=== PATIENT | male | born 1995 | race African-American/Black ===

== ENCOUNTER 2018-01-08 08:22 | Emergency (ER) | payer MEDICAID, OTHER ==
[~2018-01-08] VITALS: Ht 175.3 cm; Wt 100.0 kg
[2018-01-08] MEDS ORDERED: ALBUTEROL (0.083%) 2.5MG/3ML NEB HHN STA ×2 (08:46→10:30)
[2018-01-08] MEDS ORDERED: IPRATROPIUM BROMIDE (0.02%) 0.5MG/2.5ML NEB HHN STA (08:46)
[2018-01-08] MEDS ORDERED: PREDNISONE 20MG TABLET PO ONE (09:00)
[2018-01-08] MEDS ORDERED: ALBUTEROL (0.5%) 2.5MG/0.5ML NEB HHN ONE (11:02)
[2018-01-08 12:45] VITALS: BP 139/77
== END 2018-01-08 12:30 | disposition home or self-care (01) ==
LOC: ER 08:22
DX: J45.901 Unspecified asthma with (acute) exacerbation (principal)
CPT/HCPCS: 71045; 94640; 99284; J7512; J7611

== ENCOUNTER 2018-01-17 15:14 | Emergency (ER) | payer MEDICAID, OTHER ==
[~2018-01-17] VITALS: Ht 180.3 cm; Wt 89.0 kg
[2018-01-17] MEDS ORDERED: METHYLPREDNISOLONE SOD SUCC 125 MG/2 ML VIAL IV STA (15:29)
[2018-01-17] MEDS ORDERED: MAGNESIUM 2 G PREMIX 50 ML IV ONE (15:30)
[2018-01-17] MEDS ORDERED: LEVOFLOXACIN 750MG PREMIX 150 ML IV ONE (15:30)
[2018-01-17] MEDS ORDERED: IPRATROPIUM/ALBUTEROL 0.5-3(2.5)MG/3ML NEB HHN ONE (15:30)
[2018-01-17 16:05] LABS: BASOPHILS % 0.7 % (0.0-2.0); EOSINOPHILS % 3.9 % (0.0-5.0); LYMPHOCYTES % 17.6 % (20.0-50.0); MEAN CORPUSCULAR HEMOGLOBIN 25.9 pg (28.0-32.0); MEAN CORPUSCULAR VOLUME 77.8 fL (80.0-94.0); MEAN PLATELET VOLUME 7.6 fl (7.4-10.4); MONOCYTES % 8.4 % (2.0-8.0); NEUTROPHILS % 69.4 % (40.0-76.0); PLATELET 328 x1000/uL (130-400); RED CELL DISTRIBUTION WIDTH 13.8 % (11.6-14.6)
[2018-01-17 16:12] LABS: CHLORIDE 107 mEq/L (98-107)
[2018-01-17 16:16] LABS: ETHANOL BLOOD < 10 mg/dL
[2018-01-17] MEDS ORDERED: LEVOFLOXACIN 500MG TABLET PO ONE (18:15)
[2018-01-17 18:21] VITALS: BP 129/76
== END 2018-01-17 19:05 | disposition home or self-care (01) ==
LOC: ER 15:40
DX: J45.909 Unspecified asthma, uncomplicated (principal)
CPT/HCPCS: 36415; 71045; 80053; 83880; 84484; 85025; 87040; 94640; 96365; 96375; 99285; G0482; J1956; J2930; J3475; J7620

== ENCOUNTER 2018-04-05 21:14 | Emergency (ER) | payer MEDICAID, OTHER ==
[~2018-04-05] VITALS: Ht 180.3 cm; Wt 95.0 kg
[2018-04-05] MEDS ORDERED: METHYLPREDNISOLONE SOD SUCC 125 MG/2 ML VIAL IV STA (22:02)
[2018-04-05] MEDS ORDERED: IPRATROPIUM BROMIDE (0.02%) 0.5MG/2.5ML NEB HHN STA (22:02)
[2018-04-05] MEDS ORDERED: ALBUTEROL (0.083%) 2.5MG/3ML NEB HHN STA (22:02)
[2018-04-05] MEDS ORDERED: MAGNESIUM 2 G PREMIX 50 ML IV ONE (23:00)
[2018-04-06] MEDS ORDERED: IPRATROPIUM BROMIDE (0.02%) 0.5MG/2.5ML NEB HHN STA (01:52)
[2018-04-06] MEDS ORDERED: ALBUTEROL (0.083%) 2.5MG/3ML NEB HHN STA (01:52)
[2018-04-06 02:45] VITALS: BP 113/74
== END 2018-04-06 02:45 | disposition home or self-care (01) ==
LOC: ER 21:14
DX: J45.901 Unspecified asthma with (acute) exacerbation (principal)
CPT/HCPCS: 71045; 94640; 96365; 96375; 99284; J2930; J7611

== ENCOUNTER 2019-05-24 07:15 | Emergency (ER) | payer MEDICAID, OTHER ==
[~2019-05-24] VITALS: Ht 175.3 cm; Wt 81.0 kg
[2019-05-24] MEDS ORDERED: METHYLPREDNISOLONE SOD SUCC 125 MG/2 ML VIAL IV STA (07:25)
[2019-05-24] MEDS ORDERED: IPRATROPIUM BROMIDE (0.02%) 0.5MG/2.5ML NEB HHN STA (07:25)
[2019-05-24] MEDS ORDERED: SODIUM CHLORIDE 0.9% 1,000 ML IV ONE (07:25)
[2019-05-24] MEDS ORDERED: MAGNESIUM 2 G PREMIX 50 ML IV STA (07:25)
[2019-05-24] MEDS ORDERED: ALBUTEROL (0.083%) 2.5MG/3ML NEB HHN STA (07:25)
[2019-05-24 08:17] LABS: BASOPHILS % 1.2 % (0.0-2.0); EOSINOPHILS % 8.4 % (0.0-5.0); HEMATOCRIT. 44.4 % (42.0-52.0); HEMOGLOBIN. 14.7 g/dL (14.0-18.0); LYMPHOCYTES % 30.9 % (20.0-50.0); MEAN CORPUSCULAR HEMOGLOBIN 25.6 pg (28.0-32.0); MEAN CORPUSCULAR VOLUME 77.6 fL (80.0-94.0); MEAN PLATELET VOLUME 7.6 fl (7.4-10.4); MONOCYTES % 12.5 % (2.0-8.0); PLATELET 315 x1000/uL (130-400); RED BLOOD CELL COUNT 5.73 mill/uL (4.7-6.1); RED CELL DISTRIBUTION WIDTH 13.7 % (11.6-14.6)
[2019-05-24 08:19] LABS: CHLORIDE 109 mEq/L (98-107)
[2019-05-24] MEDS ORDERED: PREDNISONE 20MG TABLET PO ONE (09:30)
[2019-05-24 13:09] VITALS: BP 127/81
== END 2019-05-24 13:19 | disposition home or self-care (01) ==
LOC: ER 07:15
DX: J45.901 Unspecified asthma with (acute) exacerbation (principal)
CPT/HCPCS: 36415; 71045; 80053; 83880; 84484; 85025; 93005; 94644; 96365; 96366; 96375; 99285; J2930; J3475; J7030; J7611; Z7610

== ENCOUNTER 2024-04-08 21:15 | Emergency (ER) | payer MEDICAID ==
[~2024-04-08] VITALS: Ht 175.3 cm; Wt 80.0 kg
[~2024-04-08 21:15] MED LIST: ALBU6.7H3 INH; P50 PO
[2024-04-08 21:23] VITALS: O2SAT 95
[2024-04-08 22:37] LABS: CLARITY URINE CLEAR (CLEAR); COLOR URINE DARK YELLOW (YELLOW); GLUCOSE URINE NEGATIVE (NEGATIVE); KETONES URINE 3+ (NEGATIVE); LEUKOCYTE ESTERASE URINE NEGATIVE (NEGATIVE); NITRITE URINE NEGATIVE (NEGATIVE); OCCULT BLOOD URINE NEGATIVE (NEGATIVE); PH URINE 6.5 (4.5-8.0); PROTEIN URINE 1+ (NEGATIVE); SPECIFIC GRAVITY URINE 1.028 (1.005-1.030)
[2024-04-08 22:45] LABS: *AMPHETAMINES SCREEN URINE NEGATIVE (NEGATIVE)
[2024-04-08 22:46] LABS: *BARBITURATES SCREEN URINE NEGATIVE (NEGATIVE); *BENZODIAZEPINES SCREEN URINE NEGATIVE (NEGATIVE); *COCAINE SCREEN URINE NEGATIVE (NEGATIVE); CANNABINOID URINE SCREEN NEGATIVE (NEGATIVE); ECSTASY MDMA SCREEN URINE NEGATIVE (NEGATIVE); METHADONE URINE SCREEN NEGATIVE (NEGATIVE); OPIATES URINE SCREEN NEGATIVE (NEGATIVE); PHENCYCLIDINE URINE SCREEN NEGATIVE (NEGATIVE)
[2024-04-08 22:58] LABS: BACTERIA URINE 1+; RBC URINE NONE SEEN /hpf (0-2); SQUAMOUS EPITHELIAL CELL URINE RARE /lpf (RARE/1+); WBC URINE 0-2 /hpf (0-2)
[2024-04-09 00:48] LABS: CHLORIDE 107 mEq/L (98-107); POTASSIUM 3.4 mEq/L (3.5-5.1); SODIUM 142 mEq/L (136-145)
[2024-04-09 00:49] LABS: CALCIUM 9.5 mg/dL (8.7-10.4); CARBON DIOXIDE 29 mEq/L (21-32)
[2024-04-09 00:52] LABS: BASOPHILS % 0.3 % (0.0-2.0); EOSINOPHILS % 0.7 % (0.0-5.0); HEMATOCRIT. 41.8 % (42.0-52.0); HEMOGLOBIN. 14.1 g/dL (14.0-18.0); MEAN CORPUSCULAR HEMOGLOBIN 30.6 pg (28.0-32.0); MEAN CORPUSCULAR HGB CONC 33.9 g/dL (31.0-37.0); MEAN CORPUSCULAR VOLUME 90.4 fL (80.0-94.0); MEAN PLATELET VOLUME 8.1 fl (7.4-10.4); PLATELET 216 x1000/uL (130-400); RED BLOOD CELL COUNT 4.62 mill/uL (4.7-6.1); WHITE BLOOD COUNT 9.6 x1000/uL (4.5-11.0)
[2024-04-09 00:54] LABS: CREATININE 1.1 mg/dL (0.6-1.3); GLUCOSE 111 mg/dL (70-105)
[2024-04-09 00:55] LABS: UREA NITROGEN BLOOD 12 mg/dL (9-23)
[2024-04-09 00:56] LABS: ACETAMINOPHEN < 2 ug/mL (10-30); ALANINE AMINOTRANSFERASE 42 IU/L (10-49); ALBUMIN 4.3 g/dL (3.2-4.8); ASPARTATE AMINOTRANSFERASE 58 IU/L (<34)
[2024-04-09 00:57] LABS: BILIRUBIN DIRECT 0.3 mg/dL (<=3.0); BILIRUBIN TOTAL 0.8 mg/dL (0.1-1.0); PROTEIN TOTAL 6.9 g/dL (6.0-8.3)
[2024-04-09 01:22] LABS: ETHANOL BLOOD < 10 mg/dL (<10)
[2024-04-09] MEDS: POTASSIUM CHLORIDE 20MEQ/PACKET PO ONE (01:30)
[2024-04-09] MEDS: LORAZEPAM 2MG/ML INJ IM ONE ×2 (06:06→20:06)
[2024-04-09] MEDS: HALOPERIDOL LACTATE 5MG/ML VIAL IM ONE ×2 (06:06→20:06)
[2024-04-09] MEDS: DIPHENHYDRAMINE 50MG/ML VIAL IM ONE (20:06)
[2024-04-10 00:29] VITALS: BP 121/72; PULSE 84; RESP 18; TEMP 36.83628; O2SAT 99
== END 2024-04-10 00:45 ==
LOC: ER 21:15
DX: R45.1 Restlessness and agitation (principal); F25.9 Schizoaffective disorder, unspecified; F31.9 Bipolar disorder, unspecified; J45.909 Unspecified asthma, uncomplicated; Z88.0 Allergy status to penicillin; Z79.52 Long term (current) use of systemic steroids; Z20.822 Contact with and (suspected) exposure to COVID-19
CPT/HCPCS: 80076; 80305; 80048; 81003; 80307; 80329; 80320; 85025; 36415; 99285; 87426; 96372; J1200; J1630; J2060; G0480